=== PATIENT | male | born 1990 | race American Indian/Alaskan Native ===

== ENCOUNTER 2020-04-11 15:47 | Emergency (ER) | payer BC, MEDICAID ==
--- NOTE | 2020-04-11 20:05 | Emergency Department Report ---
Blank Doc - Documentation Documentation: 29-year-old male that presents with n/v and body aches x1 week. Stated has some weakness. Concerned about covid. Stated symptoms are worse. This initial assessment/diagnostic orders/clinical plan/treatment(s) is/are subject to change based on patient's health status, clinical progression and re- assessment by fellow clinical providers in the ED. Further treatment and workup at subsequent clinical providers discretion. Patient/guardians urged not to elope from the ED as their condition may be serious if not clinically assessed and managed. Initial orders include: 1- Patient sent to [facility] for further evaluation and treatment 2- labs 3- UA
--- NOTE | 2020-04-11 20:51 | XRay Report ---
ABDOMEN 3 VIEW(S) INDICATION / CLINICAL INFORMATION: Abdominal pain. COMPARISON: None available. FINDINGS: TUBES / LINES: None. BOWEL GAS PATTERN: No significant abnormality. FREE AIR / EXTRALUMINAL GAS: None seen. ADDITIONAL FINDINGS: No significant additional findings. IMPRESSION: 1. No significant abnormality. Signer Name: Elieser Vasquez MD Signed: 04/11/2020 8:47 PM Workstation Name: [email or web address]
[2020-04-11 21:48] LABS: Basophils # (Auto) 0.1 K/mm3 (0.0-0.1); Basophils % (Auto) 0.7 % (0.0-1.8); Eosinophils # (Auto) 0.1 K/mm3 (0.0-0.4); Eosinophils % (Auto) 1.7 % (0.0-4.3); Hematocrit 48.6 % (35.5-45.6); Lymphocytes # (Auto) 3.2 K/mm3 (1.2-5.4); Lymphocytes % (Auto) 40.7 % (13.4-35.0); Mean Corpuscular HGB Conc 33 % (32-34); Mean Corpuscular Volume 86 fl (84-94); Monocytes # (Auto) 0.5 K/mm3 (0.0-0.8); Monocytes % (Auto) 6.8 % (0.0-7.3); Platelet Count 309 K/mm3 (140-440); Red Blood Count 5.65 M/mm3 (3.65-5.03); Red Cell Distribution Width 14.6 % (13.2-15.2)
[2020-04-11 22:13] LABS: Alanine Aminotransferase 12 units/L (7-56); Albumin 4.7 g/dL (3.9-5); BUN/Creatinine Ratio 16; Blood Urea Nitrogen 14 mg/dL (9-20); Calcium 9.9 mg/dL (8.4-10.2); Hemolysis Index 12
[2020-04-11 23:17] LABS: Bilirubin,Urine NEG (Negative); Blood,Urine NEG (Negative); Color,Urine Yellow (Yellow); Mucus,Urine 3+ /HPF; Protein,Urine <15 mg/dL mg/dL (Negative); Urobilinogen,Urine < 2.0 mg/dL (<2.0)
--- NOTE | 2020-04-12 03:40 | Emergency Department Report ---
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 Ports no hemoptysis no hematemesis no hematochezia and no dysuria no dyspnea no exertional dyspnea no orthopnea. States he was unable to make a work and needs a note for work he was tested for COVID still waiting on the results he has been waiting thus far for 7 days Quality: dull Consistency: constant Improves with: none Worsens with: none - Related Data Previous Rx's Medication Instructions Recorded Last Taken Type Cephalexin [Keflex] 500 mg PO Q6H #28 capsule 09/11/14 Unknown Rx HYDROcodone/APAP 5-325 [[place] 1 each PO Q6HR PRN #12 tablet 09/11/14 Unknown Rx 5-325 mg TAB] Ondansetron [Zofran Odt] 4 mg PO Q8HR #20 tab.rapdis 04/12/20 Unknown Rx Allergies Allergy/AdvReac Type Severity Reaction Status Date / Time No Known Allergies Allergy Unverified 09/11/14 04:38 ED Review of Systems ROS: Stated complaint: N/V/C/HEADACHE/WEAKNESS Other details as noted in HPI Comment: All other systems reviewed and negative ED Past Medical Hx - Past Medical History Previous Medical History?: Yes Hx Psychiatric Treatment: Yes (bipolar) - Surgical History Past Surgical History?: Yes Additional Surgical History: rt hand surgery - Social History Smoking Status: Current Every Day Smoker Substance Use Type: Alcohol - Medications Home Medications: Home Medications Medication Instructions Recorded Confirmed Last Taken Type Cephalexin [Keflex] 500 mg PO Q6H #28 capsule 09/11/14 Unknown Rx HYDROcodone/APAP 5-325 [[place] 1 each PO Q6HR PRN #12 tablet 09/11/14 Unknown Rx 5-325 mg TAB] Ondansetron [Zofran Odt] 4 mg PO Q8HR #20 tab.rapdis 04/12/20 Unknown Rx ED Physical Exam - General Limitations: No Limitations General appearance: alert, in no apparent distress - Head Head exam: Present: atraumatic, normocephalic - Eye Eye exam: Present: normal appearance, PERRL, EOMI Pupils: Present: normal accommodation - ENT ENT exam: Present: normal exam, normal orophraynx, mucous membranes moist, TM's normal bilaterally - Neck Neck exam: Present: normal inspection, full ROM - Respiratory Respiratory exam: Present: normal lung sounds bilaterally. Absent: respiratory distress, wheezes, rales, chest wall tenderness - Cardiovascular Cardiovascular Exam: Present: regular rate, normal rhythm. Absent: systolic murmur, diastolic murmur, rubs, gallop - GI/Abdominal GI/Abdominal exam: Present: soft, normal bowel sounds - Rectal Rectal exam: Present: deferred - Extremities Exam Extremities exam: Present: normal inspection - Back Exam Back exam: Present: normal inspection - Neurological Exam Neurological exam: Present: alert, oriented X3, CN II-XII intact - Psychiatric Psychiatric exam: Present: normal affect, normal mood. Absent: depressed, agitated, anxious, flat affect, manic, suicidal ideation - Skin Skin exam: Present: warm, dry, intact, normal color. Absent: rash ED Course Vital Signs 04/11/20 04/12/20 17:35 01:42 Temperature 98.6 F 97.9 F Pulse Rate 66 70 Respiratory 18 16 Rate Blood Pressure 119/81 Blood Pressure 116/83 [Left] O2 Sat by Pulse 99 99 Oximetry ED Medical Decision Making - Lab Data Result diagrams: 04/11/20 21:13 04/11/20 21:13 Critical care attestation.: If time is entered above; I have spent that time in minutes in the direct care of this critically ill patient, excluding procedure time. ED Disposition Clinical Impression: Nausea & vomiting, URI (upper respiratory infection) Disposition: - TO HOME OR SELFCARE Is pt being admited?: No Does the pt Need Aspirin: No Condition: Stable Instructions: Upper Respiratory Infection (ED), Acute Nausea and Vomiting (ED) Prescriptions: Ondansetron [Zofran Odt] 4 mg PO Q8HR #20 tab.rapdis Referrals: ANUSHKA MORSE MD [Primary Care Provider] - 3-5 Days DONALD GILLETTE MD [Staff Physician] - 3-5 Days [facility] [Provider Group] - 3-5 Days Forms: Work/School Release Form(ED)
[2020-04-12 05:33] VITALS: BP 126/80
== END 2020-04-12 03:56 | disposition home or self-care (01) ==
LOC: ED 15:47
DX: J06.9 Acute upper respiratory infection, unspecified (principal); R11.2 Nausea with vomiting, unspecified; R19.7 Diarrhea, unspecified; F17.200 Nicotine dependence, unspecified, uncomplicated; F31.9 Bipolar disorder, unspecified; Z98.890 Other specified postprocedural states; Z79.899 Other long term (current) drug therapy
CPT/HCPCS: 36415; 74022; 80053; 81001; 85025

== ENCOUNTER 2020-04-26 07:20 | Emergency (ER) | payer MEDICAID ==
[2020-04-26 07:53] VITALS: BP 117/82
[2020-04-26] MEDS ORDERED: predniSONE 20 MG TAB PO ONE (10:47)
[2020-04-26] MEDS ORDERED: guaiFENesin 100 MG/5 ML ORAL LIQD PO ONE (10:47)
--- NOTE | 2020-04-26 11:28 | XRay Report ---
CHEST 2 VIEWS INDICATION: malaise/prod cough. COMPARISON: 04/11/2020 FINDINGS: Support devices: None. Heart: Within normal limits. Lungs/Pleura: No acute air space or interstitial disease. No significant pleural effusion. IMPRESSION: No acute findings. Signer Name: Jethro Solomon MD Signed: 04/26/2020 11:24 AM Workstation Name: [email or web address]
--- NOTE | 2020-04-26 11:44 | Emergency Department Report ---
Minor Respiratory - HPI Chief Complaint: Extremity Injury, Upper Stated Complaint: SOB/COUGH/WEAKNESS Time Seen by Provider: 04/26/20 10:45 Duration: 2weeks Severity: mild Minor Respiratory: Yes Able to Tolerate Fluids, Yes Cough, Yes Sick Contacts (work, unknown), No Rhinorrhea, No Sore Throat, No Ear Pain, No Hemoptysis, No Chest Pain, No Shortness of Breath, No Fever Other History: This is a 29-year-old male presents the ED today complaining of feeling sick for the past 2 weeks. Patient states he has been having productive coughing body aches and loss of appetite for the past week. Patient states that he has been going to work so he does not know who he may have been in contact with. He denies any medical condition or history. Patient noted that he has an appointment with for COVID testing this in 2 days. He also noted that he had a negative coronavirus test 2 weeks ago ED Review of Systems ROS: Stated complaint: SOB/COUGH/WEAKNESS Other details as noted in HPI Comment: All other systems reviewed and negative ED Past Medical Hx - Past Medical History Previous Medical History?: Yes Hx Psychiatric Treatment: Yes (bipolar) - Surgical History Past Surgical History?: Yes Additional Surgical History: rt hand surgery - Social History Smoking Status: Current Every Day Smoker Substance Use Type: Alcohol - Medications Home Medications: Home Medications Medication Instructions Recorded Confirmed Last Taken Type Cephalexin [Keflex] 500 mg PO Q6H #28 capsule 09/11/14 Unknown Rx HYDROcodone/APAP 5-325 [[place] 1 each PO Q6HR PRN #12 tablet 09/11/14 Unknown Rx 5-325 mg TAB] Ondansetron [Zofran Odt] 4 mg PO Q8HR #20 tab.rapdis 04/12/20 Unknown Rx guaiFENesin [Robitussin] 200 mg PO TID #210 ml 04/26/20 Unknown Rx Minor Respiratory Exam - Exam General: Vital signs noted. No distress. Alert and acting appropriately. HEENT: Yes Moist Mucous Membranes, No Pharyngeal Erythema, No Pharyngeal Exudat es, No Rhinorrhea, No Conjuctival Injection, No Frontal Tenderness, No Maxillary Tenderness Ear: Neither TM Bulge, Neither TM Erythema, Neither EAC Pain, Neither EAC Discharge Neck: Yes Supple, No Adenopathy Lungs: Yes Good Air Exchange, No Wheezes, No Ronchi, No Stridor, No Cough, No Labored Respirations, No Retractions, No Use of Accessory Muscles, No Other Abnormal Lung Sounds Heart: Yes Regular, No Murmur Abdomen: Yes Normal Bowel Sounds, No Tenderness, No Peritoneal Signs Skin: No Rash, No Edema Neurologic: Alert and oriented, no deficits. Musculoskeletal: Unremarkable. ED Course Vital Signs 04/26/20 07:45 Temperature 98.7 F Pulse Rate 77 Respiratory 18 Rate Blood Pressure 117/82 O2 Sat by Pulse 100 Oximetry ED Medical Decision Making - Radiology Data Radiology results: report reviewed Impression: No acute cardiopulmonary process. - Medical Decision Making 29-year-old male presents with upper respiratory symptoms Fever has resolved no fever during the ED stay. Chest x-ray shows no acute findings. Discussed with patient symptomatic relief with [id number] medications. Discussed with patient COVID-19 testing is appropriate and mandatory and should be done as soon as possible. Discussed with patient for 14-day quarantine if test is positive. Discussed worsening of symptoms patient should return to ED immediately. Patient oxygen saturation stayed at 98% on room air during exertion and after exertion. Discussed continue Tylenol as needed for fever and pain. Discussed increase fluids and diet intake. Discussed rest much needed. Discussed daily vitamin C for immune booster. Discussed follow-up with [facility] physician in 3-5 days. Patient verbally states she understands and will comply the following instructions and follow-up Vital signs stable. Patient is in no acute distress Critical care attestation.: If time is entered above; I have spent that time in minutes in the direct care of this critically ill patient, excluding procedure time. ED Disposition Clinical Impression: URI (upper respiratory infection), Viral syndrome Disposition: DC-01 TO HOME OR SELFCARE Is pt being admited?: No Does the pt Need Aspirin: No Condition: Stable Instructions: Viral Syndrome (ED), COVID-19 Additional Instructions: Make sure to follow up with the primary care physician as discussed. Take all your medications as you've been prescribed. If you have any worsening symptoms or develop new symptoms please return to ED immediately. Prescriptions: guaiFENesin [Robitussin] 200 mg PO TID #210 ml Referrals: PRIMARY CARE, [Primary Care Provider] - 3-5 Days Forms: Work/School Release Form(ED) Time of Disposition: 12:03
== END 2020-04-26 12:31 | disposition home or self-care (01) ==
LOC: ED 07:20
DX: J06.9 Acute upper respiratory infection, unspecified (principal); B34.9 Viral infection, unspecified; F31.9 Bipolar disorder, unspecified; F17.200 Nicotine dependence, unspecified, uncomplicated; Z79.899 Other long term (current) drug therapy
CPT/HCPCS: 71046; 99283; J7512

== ENCOUNTER 2020-09-22 09:14 | Emergency (ER) | payer BC, MEDICAID ==
[2020-09-22 09:25] VITALS: BP 111/73
--- NOTE | 2020-09-22 10:34 | Emergency Department Report ---
Chief Complaint: Nausea/Vomiting/Diarrhea Stated Complaint: COVID SYMPTOMS/VOMITTING Time Seen by Provider: 09/22/20 10:32 - HPI History of Present Illness: Patient is a 29-year-old -[place] male who left work this morning with nausea. He has no active nausea vomiting. He denies diarrhea. He has no fever. No hypotension or tachycardia. Patient is ambulatory nontoxic and due-[id number] in triage. He is taking p.o. during interview. Vital signs are normal Patient requesting a work note. - ROS Review of Systems: Nausea - Exam Vital Signs: Vital Signs 09/22/20 09:23 Temperature 98.1 F Pulse Rate 79 Respiratory 18 Rate Blood Pressure 111/73 O2 Sat by Pulse 98 Oximetry Physical Exam: Alert and oriented x4. Ambulatory. Abdomen soft nontender. No CVA tenderness. Vital signs normal. MSE screening note: Focused history and physical exam performed. Due to findings the following was ordered: Patient being discharged with medical management of the symptoms. Will follow- up with primary care in a.m. Referral given. Patient discussed with doctor:: NICOLETTE RECINOS ED Disposition for MSE Clinical Impression: Cough Disposition: Z-07 MED SCREENING EXAM-LEFT Is pt being admited?: No Does the pt Need Aspirin: No Condition: Stable Referrals: DONALD GILLETTE MD [Staff Physician] - 3-5 Days Forms: Work/School Release Form(ED) Time of Disposition: 10:33
== END 2020-09-22 10:43 | disposition left against medical advice (07) ==
LOC: ED 09:14
DX: R05 Cough (principal); R11.10 Vomiting, unspecified; Z53.21 Procedure and treatment not carried out due to patient leaving prior to being seen by health care provider

== ENCOUNTER 2020-09-26 13:17 | Emergency (ER) | payer BC, MEDICAID ==
[2020-09-26 16:08] VITALS: BP 141/85
--- NOTE | 2020-09-26 16:08 | Emergency Department Report ---
ED ENT HPI - General Chief complaint: Sore Throat Stated complaint: SORETHROAT/COUGH/MUSCLE PAIN Time Seen by Provider: 09/26/20 16:03 Source: patient Mode of arrival: Ambulatory Limitations: No Limitations - History of Present Illness Initial comments: This is a 29-year-old male nontoxic well in appearance with no signs of distress presents to the ED with complaint of body aches and sore throat. Patient denies any drooling or hoarseness. Patient denies any other symptoms. Denies any fever, chills, headache, nausea, vomiting, chest pain or SOB. Denies any other complaints. MD complaint: sore throat -: days(s) Location: throat Severity: mild Severity scale (0 -10): 8 Quality: aching Consistency: constant Improves with: none Worsens with: swallowing Associated Symptoms: pain with swallowing, sore throat. denies: fever, cough, gum swelling, toothache, tinnitus, hearing loss, discharge from ear, rhinorrhea - Related Data Previous Rx's Medication Instructions Recorded Last Taken Type Cephalexin [Keflex] 500 mg PO Q6H #28 capsule 09/11/14 Unknown Rx HYDROcodone/APAP 5-325 [[place] 1 each PO Q6HR PRN #12 tablet 09/11/14 Unknown Rx 5-325 mg TAB] Ondansetron [Zofran Odt] 4 mg PO Q8HR #20 tab.rapdis 04/12/20 Unknown Rx guaiFENesin [Robitussin] 200 mg PO TID #210 ml 04/26/20 Unknown Rx Amoxicillin [Amoxicillin TAB] 875 mg PO BID #20 tablet 09/26/20 Unknown Rx Nystas/Diphen/Xyl Visc/Mylanta 15 ml MM Q6H PRN 5 Days ml 09/26/20 Unknown Rx [Magic Mouthwash] Allergies Allergy/AdvReac Type Severity Reaction Status Date / Time No Known Allergies Allergy Verified 09/22/20 09:20 ED Dental HPI - General Chief complaint: Sore Throat Stated complaint: SORETHROAT/COUGH/MUSCLE PAIN Time Seen by Provider: 09/26/20 16:03 Source: patient Mode of arrival: Ambulatory Limitations: No Limitations - Related Data Previous Rx's Medication Instructions Recorded Last Taken Type Cephalexin [Keflex] 500 mg PO Q6H #28 capsule 09/11/14 Unknown Rx HYDROcodone/APAP 5-325 [[place] 1 each PO Q6HR PRN #12 tablet 09/11/14 Unknown Rx 5-325 mg TAB] Ondansetron [Zofran Odt] 4 mg PO Q8HR #20 tab.rapdis 04/12/20 Unknown Rx guaiFENesin [Robitussin] 200 mg PO TID #210 ml 04/26/20 Unknown Rx Amoxicillin [Amoxicillin TAB] 875 mg PO BID #20 tablet 09/26/20 Unknown Rx Nystas/Diphen/Xyl Visc/Mylanta 15 ml MM Q6H PRN 5 Days ml 09/26/20 Unknown Rx [Magic Mouthwash] Allergies Allergy/AdvReac Type Severity Reaction Status Date / Time No Known Allergies Allergy Verified 09/22/20 09:20 ED Review of Systems ROS: Stated complaint: SORETHROAT/COUGH/MUSCLE PAIN Other details as noted in HPI Comment: All other systems reviewed and negative Constitutional: denies: chills, fever Eyes: denies: eye pain, eye discharge, vision change ENT: throat pain. denies: ear pain Respiratory: denies: cough, shortness of breath, wheezing Cardiovascular: denies: chest pain, palpitations Endocrine: no symptoms reported Gastrointestinal: denies: abdominal pain, nausea, diarrhea Genitourinary: denies: urgency, dysuria Musculoskeletal: denies: back pain, joint swelling, arthralgia Skin: denies: rash, lesions Neurological: denies: headache, weakness, paresthesias Psychiatric: denies: anxiety, depression Hematological/Lymphatic: denies: easy bleeding, easy bruising ED Past Medical Hx - Past Medical History Previous Medical History?: Yes Hx Psychiatric Treatment: Yes (bipolar) - Surgical History Past Surgical History?: Yes Additional Surgical History: rt hand surgery - Social History Smoking Status: Never Smoker Substance Use Type: None - Medications Home Medications: Home Medications Medication Instructions Recorded Confirmed Last Taken Type Cephalexin [Keflex] 500 mg PO Q6H #28 capsule 09/11/14 Unknown Rx HYDROcodone/APAP 5-325 [[place] 1 each PO Q6HR PRN #12 tablet 09/11/14 Unknown Rx 5-325 mg TAB] Ondansetron [Zofran Odt] 4 mg PO Q8HR #20 tab.rapdis 04/12/20 Unknown Rx guaiFENesin [Robitussin] 200 mg PO TID #210 ml 04/26/20 Unknown Rx Amoxicillin [Amoxicillin TAB] 875 mg PO BID #20 tablet 09/26/20 Unknown Rx Nystas/Diphen/Xyl Visc/Mylanta 15 ml MM Q6H PRN 5 Days ml 09/26/20 Unknown Rx [Magic Mouthwash] ED Physical Exam - General Limitations: No Limitations General appearance: alert, in no apparent distress - Head Head exam: Present: atraumatic, normocephalic - Eye Eye exam: Present: normal appearance - Expanded ENT Exam Expanded Ear exam: Present: normal external inspection Mouth exam: Present: normal external inspection, tongue normal. Absent: drooling, trismus, muffled voice Teeth exam: Present: normal inspection. Absent: dental caries, fractured tooth #, dental tenderness #, gingival enlargement Throat exam: Positive: tonsillar erythema, other (uvula midline). Negative: tonsillomegaly, tonsillar exudate, R peritonsillar mass, L peritonsillar mass - Neck Neck exam: Present: normal inspection, full ROM, lymphadenopathy (bilateral tonsillar). Absent: tenderness, meningismus - Respiratory Respiratory exam: Present: normal lung sounds bilaterally. Absent: respiratory distress, wheezes, rales, rhonchi, chest wall tenderness, accessory muscle use, decreased breath sounds, prolonged expiratory - Cardiovascular Cardiovascular Exam: Present: regular rate, normal rhythm, normal heart sounds. Absent: bradycardia, tachycardia, irregular rhythm, systolic murmur, diastolic murmur, rubs, gallop - Extremities Exam Extremities exam: Present: normal inspection, full ROM - Back Exam Back exam: Present: normal inspection, full ROM. Absent: tenderness, CVA tenderness (R), CVA tenderness (L), muscle spasm, paraspinal tenderness, vertebral tenderness, rash noted - Neurological Exam Neurological exam: Present: alert, oriented X3, normal gait - Psychiatric Psychiatric exam: Present: normal affect, normal mood - Skin Skin exam: Present: warm, dry, intact, normal color. Absent: rash ED Course Vital Signs 09/26/20 16:03 Temperature 98.4 F Pulse Rate 73 Respiratory 16 Rate Blood Pressure 141/85 [Right] O2 Sat by Pulse 98 Oximetry - Reevaluation(s) Reevaluation #1: 09/26/20 16:07 Patient is speaking in full sentences with no signs of distress noted. ED Medical Decision Making - Medical Decision Making Patient was instructed to Follow-up with a primary care doctor in 3-5 days or if symptoms worsen and continue return to emergency room as soon as possible. At time of discharge, the patient does not seem toxic or ill in appearance. No acute signs of distress noted. Patient agrees to discharge treatment plan of care. No further questions noted by the patient. Critical care attestation.: If time is entered above; I have spent that time in minutes in the direct care of this critically ill patient, excluding procedure time. ED Disposition Clinical Impression: Pharyngitis Qualifiers: Pharyngitis/tonsillitis etiology: unspecified etiology Qualified Code(s): J02.9 - Acute pharyngitis, unspecified Disposition: TO HOME OR SELFCARE Is pt being admited?: No Does the pt Need Aspirin: No Condition: Stable Instructions: Pharyngitis, Rhod-ns-Jaab Additional Instructions: Follow-up with a primary care doctor in 3-5 days or if symptoms worsen and continue return to emergency room as soon as possible. Prescriptions: Amoxicillin [Amoxicillin TAB] 875 mg PO BID #20 tablet Nystas/Diphen/Xyl Visc/Mylanta [Magic Mouthwash] 15 ml MM Q6H PRN 5 Days ml PRN Reason: Sore Throat Referrals: PRIMARY CAREMD [Primary Care Provider] - 3-5 Days DONALD GILLETTE MD [Staff Physician] - 3-5 Days [facility] [Provider Group] - 3-5 Days Forms: Work/School Release Form(ED) Time of Disposition: 16:10
== END 2020-09-26 16:23 | disposition home or self-care (01) ==
LOC: ED 13:17
DX: J02.9 Acute pharyngitis, unspecified (principal); R13.10 Dysphagia, unspecified; F31.9 Bipolar disorder, unspecified; Z98.890 Other specified postprocedural states; Z79.2 Long term (current) use of antibiotics; Z79.899 Other long term (current) drug therapy
CPT/HCPCS: 99281

== ENCOUNTER 2021-03-13 10:56 | Emergency (ER) | payer BC, MEDICAID ==
[2021-03-13] MEDS ORDERED: IPRATROPIUM/ALBUTEROL SULFATE 3 ML AMPUL.NEB IH ONE (11:10)
[2021-03-13] MEDS ORDERED: methylPREDNISolone Sod Succinate 125 MG/2 ML INJ IV ONE (11:11)
--- NOTE | 2021-03-13 12:01 | Emergency Department Report ---
- General Chief Complaint: Sore Throat Stated Complaint: COUGH, SORE TROAT, CONGESTION, MUSCLE TIGHTNESS PUI?: Yes Time Seen by Provider: 03/13/21 11:57 Source: patient Mode of arrival: Ambulatory Limitations: No Limitations - History of Present Illness Initial Comments: Chief complaint: Sore throat runny nose HPI: This is a healthy 30-year-old male with history of bipolar disorder presents with cough congestion sore throat for 1 week. Did have a young nephew with similar symptoms. Patient has loss of taste. He states that his cigarettes taste different. Patient also has generalized muscle aches. MD Complaint: cough, sore throat, rhinorrhea, nasal congestion, other (Body aches loss of taste or smell) -: Gradual Severity: mild Consistency: constant Improves With: nothing Worsens With: nothing Context: sick contacts (Young nephew with similar symptoms) - Related Data Previous Rx's Medication Instructions Recorded Last Taken Type Cephalexin [Keflex] 500 mg PO Q6H #28 capsule 09/11/14 Unknown Rx HYDROcodone/APAP 5-325 [[place] 1 each PO Q6HR PRN #12 tablet 09/11/14 Unknown Rx 5-325 mg TAB] Ondansetron [Zofran Odt] 4 mg PO Q8HR #20 tab.rapdis 04/12/20 Unknown Rx guaiFENesin [Robitussin] 200 mg PO TID #210 ml 04/26/20 Unknown Rx Amoxicillin [Amoxicillin TAB] 875 mg PO BID #20 tablet 09/26/20 Unknown Rx Nystas/Diphen/Xyl Visc/Mylanta 15 ml MM Q6H PRN 5 Days ml 09/26/20 Unknown Rx [Magic Mouthwash] Allergies Allergy/AdvReac Type Severity Reaction Status Date / Time No Known Allergies Allergy Verified 09/22/20 09:20 ED Review of Systems ROS: Stated complaint: COUGH, SORE TROAT, CONGESTION, MUSCLE TIGHTNESS Other details as noted in HPI Comment: All other systems reviewed and negative Constitutional: malaise ENT: throat pain, congestion Respiratory: cough Musculoskeletal: myalgia ED Past Medical Hx - Past Medical History Previous Medical History?: No Hx Psychiatric Treatment: Yes (bipolar) - Surgical History Past Surgical History?: No Additional Surgical History: rt hand surgery - Social History Smoking Status: Current Every Day Smoker Substance Use Type: None - Medications Home Medications: Home Medications Medication Instructions Recorded Confirmed Last Taken Type Cephalexin [Keflex] 500 mg PO Q6H #28 capsule 09/11/14 Unknown Rx HYDROcodone/APAP 5-325 [[place] 1 each PO Q6HR PRN #12 tablet 09/11/14 Unknown Rx 5-325 mg TAB] Ondansetron [Zofran Odt] 4 mg PO Q8HR #20 tab.rapdis 04/12/20 Unknown Rx guaiFENesin [Robitussin] 200 mg PO TID #210 ml 04/26/20 Unknown Rx Amoxicillin [Amoxicillin TAB] 875 mg PO BID #20 tablet 09/26/20 Unknown Rx Nystas/Diphen/Xyl Visc/Mylanta 15 ml MM Q6H PRN 5 Days ml 09/26/20 Unknown Rx [Magic Mouthwash] ED Physical Exam - General Limitations: No Limitations General appearance: alert, in no apparent distress, other (Well-appearing no acute distress) - Head Head exam: Present: atraumatic, normocephalic - Eye Eye exam: Present: normal appearance - ENT ENT exam: Present: normal orophraynx, mucous membranes moist, TM's normal silverio aterally, other (No exudates no erythema no edema) - Neck Neck exam: Present: normal inspection - Respiratory Respiratory exam: Present: normal lung sounds bilaterally. Absent: respiratory distress, wheezes - Cardiovascular Cardiovascular Exam: Present: regular rate, normal rhythm, normal heart sounds. Absent: systolic murmur, diastolic murmur, rubs, gallop - GI/Abdominal GI/Abdominal exam: Present: soft, normal bowel sounds - Rectal Rectal exam: Present: deferred - Extremities Exam Extremities exam: Present: normal inspection - Back Exam Back exam: Present: normal inspection - Neurological Exam Neurological exam: Present: alert, oriented X3 - Psychiatric Psychiatric exam: Present: normal affect, normal mood - Skin Skin exam: Present: warm, dry, intact, normal color. Absent: rash ED Course Vital Signs 03/13/21 03/13/21 11:49 11:51 Temperature 99.1 F Pulse Rate 86 Respiratory 18 Rate Blood Pressure 104/70 [Right] O2 Sat by Pulse 100 Oximetry ED Medical Decision Making - Medical Decision Making Upper respiratory infection, viral syndrome, allergic rhinitis recommended [id number] antihistamines. Also suspect COVID-19 infection. Recommended outpatient testing. Patient provided education. Critical care attestation.: If time is entered above; I have spent that time in minutes in the direct care of this critically ill patient, excluding procedure time. ED Disposition Clinical Impression: Viral syndrome, Upper respiratory infection, Allergic rhinitis Disposition: DC-01 TO HOME OR SELFCARE Is pt being admited?: No Does the pt Need Aspirin: No Condition: Stable Instructions: COVID-19 Frequently Asked Questions Forms: Work/School Release Form(ED)
[2021-03-13 12:45] VITALS: BP 105/80
== END 2021-03-13 12:46 | disposition home or self-care (01) ==
LOC: ED 10:56
DX: J30.9 Allergic rhinitis, unspecified (principal); J06.9 Acute upper respiratory infection, unspecified; B97.89 Other viral agents as the cause of diseases classified elsewhere; F31.9 Bipolar disorder, unspecified; F17.200 Nicotine dependence, unspecified, uncomplicated; Z98.890 Other specified postprocedural states; Z79.2 Long term (current) use of antibiotics; Z79.899 Other long term (current) drug therapy
CPT/HCPCS: 99282